=== PATIENT | male | born 1950 | race Caucasian/White ===

== ENCOUNTER 2016-03-25 15:41 | Outpatient (CLI) | payer OTHER | END 2016-03-25 23:00 | LOC: LAB SRH 15:41 | DX: Z51.81 Encounter for therapeutic drug level monitoring (principal); Z79.01 Long term (current) use of anticoagulants; I26.99 Other pulmonary embolism without acute cor pulmonale | CPT/HCPCS: 90074; 94060 ==

== ENCOUNTER 2016-04-22 15:34 | Outpatient (CLI) | payer OTHER | END 2016-04-22 23:00 | LOC: LAB SRH 15:34 | DX: Z79.01 Long term (current) use of anticoagulants (principal); I26.99 Other pulmonary embolism without acute cor pulmonale | CPT/HCPCS: 90074; 94060 ==

== ENCOUNTER 2016-06-23 15:38 | Outpatient (CLI) | payer OTHER | END 2016-06-23 23:00 | LOC: LAB SRH 15:38 | DX: Z51.81 Encounter for therapeutic drug level monitoring (principal); Z79.01 Long term (current) use of anticoagulants; I26.99 Other pulmonary embolism without acute cor pulmonale | CPT/HCPCS: 90074; 94060 ==

== ENCOUNTER 2016-08-14 15:46 | Outpatient (CLI) | payer OTHER | END 2016-08-14 23:00 | disposition home or self-care (01) | LOC: LAB SRH 15:46 | DX: Z51.81 Encounter for therapeutic drug level monitoring (principal); Z79.01 Long term (current) use of anticoagulants; I26.99 Other pulmonary embolism without acute cor pulmonale | CPT/HCPCS: 90074; 94060 ==